=== PATIENT | female | born 1980 | race Caucasian/White ===

== ENCOUNTER 2018-02-26 16:13 | Emergency (ER) | payer OTHER ==
[~2018-02-26] VITALS: Ht 160 cm; Wt 65.8 kg
[2018-02-26 16:27] VITALS: Ht 160 cm; Wt 65.8 kg
[2018-02-26 18:20] VITALS: BP 111/68
== END 2018-02-26 18:20 | disposition home or self-care (01) ==
LOC: ED 16:13
DX: N12 Tubulo-interstitial nephritis, not specified as acute or chronic (principal)
CPT/HCPCS: Q0092

== ENCOUNTER 2018-03-12 08:17 | Emergency (ER) | payer OTHER ==
[~2018-03-12] VITALS: Ht 160 cm; Wt 65.8 kg
[2018-03-12 08:20] VITALS: BP 116/83; Ht 160 cm; Wt 65.8 kg
== END 2018-03-12 09:38 | disposition home or self-care (01) ==
LOC: ED 08:17
DX: M54.5 Low back pain (principal)

== ENCOUNTER 2019-07-24 07:23 | Emergency (ER) | payer OTHER ==
[~2019-07-24] VITALS: Ht 162.6 cm; Wt 80.7 kg
[2019-07-24 07:26] VITALS: BP 140/85; Ht 162.6 cm; Wt 80.7 kg
[2019-07-24 08:15] LABS: UA SPECIFIC GRAVITY <=1.005 (1.005-1.035); microscopic required? YES; urine erythrocyte TRACE (NEGATIVE)
[2019-07-24 09:06] LABS: BASOPHIL % 0.6 % (0-2); PLATELET COUNT 248 x10^3mcL (130-400); RED CELL DISTRIBUTION WIDTH 12.5 % (11.5-14.5)
[2019-07-24 09:12] LABS: CALCIUM 8.1 mg/dL (8.5-10.1); CARBON DIOXIDE 26.8 mmol/L (21-32); CHLORIDE SERUM 107 mmol/L (98-107); CREATININE SERUM 0.7 mg/dL (0.6-1.0); GFR1 > 60 mL/min; GLUCOSE SERUM 92 mg/dL (74-106); SODIUM SERUM 141 mmol/L (136-145)
[2019-07-24 09:17] LABS: ALBUMIN 3.5 g/dL (3.4-5.0); ALKALINE PHOSPHATASE 46 U/L (46-116); ALT/SGPT 21 U/L (14-59); AST/SGOT 17 U/L (15-37); BILIRUBIN TOTAL 0.2 mg/dL (0.20-1.00)
== END 2019-07-24 10:45 | disposition home or self-care (01) ==
LOC: ED 07:23
PROVIDERS: Emergency Medicine
DX: M62.830 Muscle spasm of back (principal); R11.2 Nausea with vomiting, unspecified; Z87.442 Personal history of urinary calculi; Z90.49 Acquired absence of other specified parts of digestive tract
CPT/HCPCS: 20552; 36415; J1885; J2001; Q0162